=== PATIENT | male | born 1975 | race Caucasian/White ===

== ENCOUNTER 2020-02-01 09:45 | Emergency (ER) | payer BC ==
[2020-02-01] MEDS ORDERED: KETOROLAC 30 MG/ML INJ ONE (10:03)
[2020-02-01] MEDS ORDERED: NA CHLORIDE 0.9% 1,000 ML ONE ×2 (10:03→11:31)
[2020-02-01 10:20] LABS: Absolute Lymphocytes (CBC) 1.3 K/uL (0.7-4.9); Basophils % 0.3 % (0-1.3); Lymphocytes % 16.6 % (15.3-44.8); MPV 9.1 fL (7.6-11.3); RBC Red Blood Cell Count 5.05 M/uL (4.33-5.43)
--- NOTE | 2020-02-01 10:50 | RAD REPORT ---
EXAM DESCRIPTION: US - Abdomen Exam Limited - 02/01/2020 10:16 am CLINICAL HISTORY: ABD PAIN COMPARISON: No comparisons FINDINGS: Gallbladder is only partially filled. Patient was not fasting at the time of the examinati on. No stones or sludge confirmed. Wall thickness is accentuated by the partially contracted state. N o pericholecystic fluid. No common duct stone or biliary tree dilatation identified. Diffuse fatty infiltration of a partially imaged liver. IMPRESSION: No stones or sludge identified in the partially filled gallbladder. No biliary tree dilatation or duct stone seen.
[2020-02-01 10:51] LABS: Albumin 4.1 g/dL (3.4-5.0); Bilirubin Direct 0.1 mg/dL (0-0.2); Bilirubin Total 0.6 mg/dL (0.2-1.0); Magnesium 2.4 mg/dL (1.8-2.4); Protein, Total 8.1 g/dL (6.4-8.2); Uric Acid 5.6 mg/dL (3.5-7.2)
[2020-02-01 10:53] LABS: CKMB Creatine Kinase MB < 1.0 ng/mL (0.3-3.6); Creatine Phosphokinase 106 U/L (39-308); HDL Cholesterol 79 mg/dL (40-60); LDL Cholesterol, Calculated 99 (<130)
--- NOTE | 2020-02-01 10:56 | RAD REPORT ---
EXAM DESCRIPTION: CT - Abdomen W Contrast - 02/01/2020 10:30 am CLINICAL HISTORY: ABD PAIN COMPARISON: No comparisons TECHNIQUE: Biphasic, helical CT imaging of the abdomen was performed following 100 ml non-ionic IV c ontrast. No oral contrast administered. All CT scans are performed using dose optimization technique as appropriate and may include automated exposure control or mA/KV adjustment according to patient size. FINDINGS: No suspicious findings in the lung bases. Mild diffuse fatty infiltration of the liver is present. There is small area of spared parenchyma monet r the gallbladder fossa. No focal liver parenchymal lesions seen. Portal vein is normal. Partially fi lled gallbladder shows no suspicious finding on CT imaging. No biliary tree dilatation. Pancreas and spleen show no suspicious findings. Symmetric renal function is seen with no hydronephrosis or suspicious renal mass. Bilateral small hank al cysts are present. There is a larger benign 2.8 centimeter cyst posterior upper pole left kidney. No perinephric stranding. No adrenal gland abnormality. No gastric dilatation or wall thickening. No small bowel or large bowel dilatation or acute finding. No free air, free fluid or inflammatory stranding. A very small fat only umbilical hernia is present . No ascites or bulky lymphadenopathy. No suspicious bony findings. IMPRESSION: Fatty infiltration of the liver. No other acute or significant finding identifiable.
[2020-02-01] MEDS ORDERED: DIAZEPAM 5 MG TABLET ONE (11:31)
[2020-02-01 11:49] LABS: Urine Blood NEGATIVE (NEG); Urine Glucose NEGATIVE (NEG); Urine Protein NEGATIVE (NEG); Urine pH 5.5 (5.0-7.0)
[2020-02-01] MEDS ORDERED: DICYCLOMINE HCL 10 MG CAP ONE (12:34)
[2020-02-01 12:46] VITALS: TEMP 98.2
[2020-02-01 12:47] VITALS: BP 135/96; O2SAT 100
--- NOTE | 2020-02-01 19:57 | ER ---
Nurse's Notes [facility] Name: Nav Roman Age: 44 yrs Sex: Male : 1975 Arrival Date: 02/01/2020 Time: 09:46 Bed 8 Private MD: Diagnosis: Unspecified abdominal pain;Fatty (change of) liver, not elsewhere classified Presentation: 01/31 09:51 Chief complaint: Patient states: right sided back pain that started yesterday, denies em problems urinating. Coronavirus screen: Proceed with normal triage. Patient denies a cough. Patient denies shortness of breath or difficulty breathing. Patient denies measured and/or subjective temperature greater than 100.4F prior to today's visit. Patient denies travel on a cruise ship or to a country the [facility] currently lists as an affected area. Patient denies contact with known and/or suspected case of COVID-19. Ebola Screen: Patient negative for fever greater than or equal to 101.5 degrees Fahrenheit, and additional compatible Ebola Virus Disease symptoms Patient denies exposure to infectious person. Patient denies travel to an Ebola-affected area in the 21 days before illness onset. No symptoms or risks identified at this time. Initial Sepsis Screen: Does the patient meet any 2 criteria? HR > 90 bpm. No. Patient's initial sepsis screen is negative. Does the patient have a suspected source of infection? No. Patient's initial sepsis screen is negative. Risk Assessment: Do you want to hurt yourself or someone else? Patient reports no desire to harm self or others. Onset of symptoms was January 31, 2020. 09:51 Method Of Arrival: Ambulatory em 09:51 Acuity: ANDERSON 3 em Historical: - Allergies: 09:49 No Known Allergies; snw - Home Meds: 09:54 None [Active]; em - PMHx: 09:54 None; em - PSHx: 09:54 None; em - Immunization history:: Adult Immunizations up to date. - Social history:: Patient uses alcohol, on a daily basis. caffeine, Patient/guardian denies using IV drugs, The patient works around chemicals, Smoking status: Patient denies any tobacco usage or history of. - Family history:: pertinent for heart disease, hypertension, hypercholesterolemia, hyperlipidemia, Father has/had heart disease, sudden at 47. Brother has/had heart disease, [place] at 38yr. - Hospitalizations: : No recent hospitalization is reported. Screenin:53 Abuse screen: Denies threats or abuse. Nutritional screening: No deficits noted. em Tuberculosis screening: No symptoms or risk factors identified. Fall Risk None identified. Assessment: 09:50 General: Appears in no apparent distress. comfortable, Behavior is calm, cooperative, em appropriate for age, Denies fever. Pain: Complains of pain in right lower quadrant and right upper quadrant Pain currently is 5 out of 10 on a pain scale. Neuro: Level of Consciousness is awake, alert, obeys commands, Oriented to person, place, time, situation, Appropriate for age. Cardiovascular: Capillary refill < 3 seconds Patient's skin is warm and dry. Respiratory: Airway is patent Respiratory effort is even, unlabored, Respiratory pattern is regular, symmetrical. GI: Abdomen is flat, Bowel sounds present X 4 quads. Abd is soft X 4 quads Abdomen is tender to palpation in right upper quadrant and right lower quadrant Patient currently denies nausea, vomiting. : Denies burning with urination. Derm: Skin is intact, is healthy with good turgor, Skin is pink, warm \T\ dry. Musculoskeletal: Capillary refill < 3 seconds, Range of motion: intact in all extremities. 10:10 Reassessment: US at bedside. em 10:30 Reassessment: Patient appears in no apparent distress at this time. Patient and/or em family updated on plan of care and expected duration. Pain level reassessed. Patient is alert, oriented x 3, equal unlabored respirations, skin warm/dry/pink. Patient states feeling better. Patient states symptoms have improved. 11:49 Reassessment: Pt will be discharged after fluids are done infusing. [email or web address] Vital Signs: 09:51 BP 131 / 104; Pulse 107; Resp 20; Temp 98.0; Pulse Ox 99% on R/A; Pain 5/10; em 09:55 BP 143 / 100; Pulse 108; Resp 18; Temp 98.2; Pulse Ox 99% ; Weight 108.86 kg; Height 6 snw ft. 1 in. (185.42 cm); 11:44 BP 135 / 96; Pulse 83; Resp 18; Pulse Ox 100% on R/A; Pain 2/10; em 09:55 Body Mass Index 31.66 (108.86 kg, 185.42 cm) sn ED Course: 09:46 Patient arrived in ED. snw 09:48 Hugh De La Paz, RN is Primary Nurse. em 09:51 Arm band placed on. em 09:53 Triage completed. em 09:53 Patient has correct armband on for positive identification. Placed in gown. Bed in low em position. Call light in reach. Side rails up X2. Adult w/ patient. Pulse ox on. NIBP on. 09:55 Sierra Roman FNP-C is PHCP. snw 09:55 Rogelio Suárez MD is Attending Physician. snw 10:16 Abdomen Limited US In Process Unspecified. EDMS 10:25 Ultrasound completed. Patient tolerated well. hr 10:30 CT Abdomen - IV Contrast Only In Process Unspecified. EDMS 10:30 Initial lab(s) drawn, by me, sent to lab. Inserted saline lock: 20 gauge in right em antecubital area, using aseptic technique. Blood collected. 11:25 Urine collected: clean catch specimen, clear. em 12:23 No provider procedures requiring assistance completed. IV discontinued, intact, em bleeding controlled, No redness/swelling at site. Pressure dressing applied. Administered Medications: 10:05 Drug: NS 0.9% 1000 ml Route: IV; Rate: 1 bolus; Site: right antecubital; em 12:35 Follow up: IV Status: Completed infusion; IV Intake: 1000ml em 10:05 Drug: TORadol - Ketorolac 15 mg Route: IVP; Site: right antecubital; em 11:20 Follow up: Response: No adverse reaction; Marked relief of symptoms; Pain is decreased em 11:30 Drug: NS 0.9% 1000 ml Route: IV; Rate: 1 bolus; Site: right antecubital; em 12:38 Follow up: IV Status: Completed infusion; IV Intake: 1235ml em 11:30 Drug: Valium 5 mg Route: PO; em 11:43 Follow up: Response: No adverse reaction em 12:30 Drug: Bentyl 20 mg Route: PO; ss 12:35 Follow up: Response: Medication administered at discharge. em Intake: 12:35 IV: 1000ml; Total: 1000ml. em 12:38 IV: 1235ml; Total: 2235ml. em Outcome: 11:42 Discharge ordered by MD. meza 12:23 Discharged to home ambulatory. em 12:23 Condition: good 12:23 Discharge instructions given to patient, Instructed on discharge instructions, follow up and referral plans. medication usage, Demonstrated understanding of instructions, follow-up care, medications, Prescriptions given X 1. 12:37 Patient left the ED. em Signatures: Dispatcher [employer] EDMS Sierra Roman, TRAFFIC ENGINEER-C TRAFFIC ENGINEER-Csnw Sadie Feng Edgar, RN RN Sangeeta Matamoros RN RN Mimi Heath RN RN [email or web address] Corrections: (The following items were deleted from the chart) 10:10 09:51 Initial Sepsis Screen: Does the patient meet any 2 criteria? HR > 90 bpm. No. em Patient's initial sepsis screen is negative. Does the patient have a suspected source of infection? No. Patient's initial sepsis screen is negative. em
--- NOTE | 2020-02-01 19:57 | EDPHYS ---
Physician Documentation [facility] Name: Nav Roman Age: 44 yrs Sex: Male : 1975 Arrival Date: 02/01/2020 Time: 09:46 Bed 8 Private MD: ED Physician Rogelio Suárez HPI: 01/31 09:51 This 44 yrs old Male presents to ER via Unassigned with complaints of snw Abdominal Pain. 09:52 The patient presents with abdominal pain in the right upper quadrant, right lower snw quadrant. Onset: The symptoms/episode began/occurred gradually, yesterday, and became worse. The symptoms radiate to the right flank, right upper quadrant and right lower quadrant. Associated signs and symptoms: none. The symptoms are described as crampy, steady, vague. Severity of pain: At its worst the pain was moderate. The patient has not experienced similar symptoms in the past. The patient has not recently seen a physician, and does not have an established primary care provider. Historical: - Allergies: 09:49 No Known Allergies; snw - Home Meds: 09:54 None [Active]; em - PMHx: 09:54 None; em - PSHx: 09:54 None; em - Immunization history:: Adult Immunizations up to date. - Social history:: Patient uses alcohol, on a daily basis. caffeine, Patient/guardian denies using IV drugs, The patient works around [employer], Smoking status: Patient denies any tobacco usage or history of. - Family history:: pertinent for heart disease, hypertension, hypercholesterolemia, hyperlipidemia, Father has/had heart disease, sudden at 47. Brother has/had heart disease, [place] at 38yr. - Hospitalizations: : No recent hospitalization is reported. ROS: 09:52 Constitutional: Negative for fever, chills, and weight loss, Eyes: Negative for injury, snw pain, redness, and discharge, ENT: Negative for injury, pain, and discharge, Neck: Negative for injury, pain, and swelling, Cardiovascular: Negative for chest pain, palpitations, and edema, Respiratory: Negative for shortness of breath, cough, wheezing, and pleuritic chest pain, Back: Negative for injury and pain, : Negative for injury, bleeding, discharge, and swelling, MS/Extremity: Negative for injury and deformity, Skin: Negative for injury, rash, and discoloration, Neuro: Negative for headache, weakness, numbness, tingling, and seizure. 09:52 Abdomen/GI: Positive for abdominal pain, Negative for nausea, vomiting, and diarrhea, black/tarry stool, rectal pain, bowel incontinence. Exam: 09:52 Constitutional: This is a well developed, well nourished patient who is awake, alert, snw and in no acute distress. Head/Face: Normocephalic, atraumatic. Eyes: Pupils equal round and reactive to light, extra-ocular motions intact. Lids and lashes normal. Conjunctiva and sclera are non-icteric and not injected. Cornea within normal limits. Periorbital areas with no swelling, redness, or edema. ENT: Nares patent. No nasal discharge, no septal abnormalities noted. Tympanic membranes are normal and external auditory canals are clear. Oropharynx with no redness, swelling, or masses, exudates, or evidence of obstruction, uvula midline. Mucous membranes moist. Neck: Trachea midline, no thyromegaly or masses palpated, and no cervical lymphadenopathy. Supple, full range of motion without nuchal rigidity, or vertebral point tenderness. No Meningismus. Chest/axilla: Normal chest wall appearance and motion. Nontender with no deformity. No lesions are appreciated. Cardiovascular: Regular rate and rhythm with a normal S1 and S2. No gallops, murmurs, or rubs. Normal PMI, no JVD. No pulse deficits. Respiratory: Lungs have equal breath sounds bilaterally, clear to auscultation and percussion. No rales, rhonchi or wheezes noted. No increased work of breathing, no retractions or nasal flaring. Skin: Warm, dry with normal turgor. Normal color with no rashes, no lesions, and no evidence of cellulitis. MS/ Extremity: Pulses equal, no cyanosis. Neurovascular intact. Full, normal range of motion. Neuro: Awake and alert, GCS 15, oriented to person, place, time, and situation. Cranial nerves II-XII grossly intact. Motor strength 5/5 in all extremities. Sensory grossly intact. Cerebellar exam normal. Normal gait. Psych: Awake, alert, with orientation to person, place and time. Behavior, mood, and affect are within normal limits. 09:52 Abdomen/GI: Inspection: abdomen appears normal, Bowel sounds: hyperactive, in the right upper quadrant, Palpation: mild abdominal tenderness, in the right upper quadrant and right lower quadrant. 09:52 Back: pain, that is moderate, CVA tenderness, that is mild, is noted on the right, vertebral tenderness, is not appreciated, muscle spasm, is not present. Vital Signs: 09:51 BP 131 / 104; Pulse 107; Resp 20; Temp 98.0; Pulse Ox 99% on R/A; Pain 5/10; em 09:55 BP 143 / 100; Pulse 108; Resp 18; Temp 98.2; Pulse Ox 99% ; Weight 108.86 kg; Height 6 snw ft. 1 in. (185.42 cm); 11:44 BP 135 / 96; Pulse 83; Resp 18; Pulse Ox 100% on R/A; Pain 2/10; em 09:55 Body Mass Index 31.66 (108.86 kg, 185.42 cm) snw MDM: 09:46 Patient medically screened. snw 11:06 Data reviewed: vital signs, nurses notes, lab test result(s), EKG, radiologic studies, snw CT scan, ultrasound. Data interpreted: Pulse oximetry: on room air is 99 %. Interpretation: normal. Counseling: I had a detailed discussion with the patient and/or guardian regarding: the historical points, exam findings, and any diagnostic results supporting the discharge/admit diagnosis, the presence of at least one elevated blood pressure reading (>120/80) during this emergency department visit, lab results, radiology results, the need for outpatient follow up, for definitive care, to return to the emergency department if symptoms worsen or persist or if there are any questions or concerns that arise at home. Response to treatment: the patient's symptoms have mildly improved after treatment. 01/31 09:49 Order name: Basic Metabolic Panel; Complete Time: 10:58 snw 01/31 09:49 Order name: CBC with Diff; Complete Time: 10:25 snw 01/31 09:49 Order name: Hepatic Function; Complete Time: 10:58 snw 01/31 09:49 Order name: Lipase; Complete Time: 10:58 snw 01/31 09:49 Order name: Magnesium; Complete Time: 10:58 snw 01/31 09:49 Order name: Abdomen Limited US; Complete Time: 10:58 snw 01/31 09:49 Order name: Phosphorus; Complete Time: 10:58 snw 01/31 09:49 Order name: Uric Acid; Complete Time: 10:58 snw 01/31 09:51 Order name: Ckmb; Complete Time: 10:58 snw 01/31 09:51 Order name: CPK; Complete Time: 10:58 snw 01/31 09:52 Order name: Lipid Profile; Complete Time: 10:58 snw 01/31 11:44 Order name: Urine Dipstick--Ancillary (enter results); Complete Time: 11:49 bd 01/31 11:59 Order name: CREATININE WHOLE BLOOD; Complete Time: 12:00 EDMS 01/31 09:49 Order name: IV Saline Lock; Complete Time: 11:43 snw 01/31 09:49 Order name: Labs collected and sent; Complete Time: 09:54 snw 01/31 09:49 Order name: CT Abdomen - IV Contrast Only; Complete Time: 10:58 snw 01/31 09:49 Order name: Urine Dipstick-Ancillary (obtain specimen); Complete Time: 11:43 snw Administered Medications: 10:05 Drug: NS 0.9% 1000 ml Route: IV; Rate: 1 bolus; Site: right antecubital; em 12:35 Follow up: IV Status: Completed infusion; IV Intake: 1000ml em 10:05 Drug: TORadol - Ketorolac 15 mg Route: IVP; Site: right antecubital; em 11:20 Follow up: Response: No adverse reaction; Marked relief of symptoms; Pain is decreased em 11:30 Drug: NS 0.9% 1000 ml Route: IV; Rate: 1 bolus; Site: right antecubital; em 12:38 Follow up: IV Status: Completed infusion; IV Intake: 1235ml em 11:30 Drug: Valium 5 mg Route: PO; em 11:43 Follow up: Response: No adverse reaction em 12:30 Drug: Bentyl 20 mg Route: PO; ss 12:35 Follow up: Response: Medication administered at discharge. em Disposition: 15:24 Co-signature as Attending Physician, Rogelio LARSEN I agree with the assessment and kang plan of care. Disposition: 02/01/20 11:42 Discharged to Home. Impression: Unspecified abdominal pain, Fatty (change of) liver, not elsewhere classified. - Condition is Stable. - Discharge Instructions: Abdominal Pain, Adult, Hypertension, Rehydration, Adult, Form - Blood Pressure Record Sheet, Essential Tremor, Nonalcoholic Fatty Liver Disease Diet. - Prescriptions for Bentyl 20 mg Oral Tablet - take 2 tablet by ORAL route every 6 hours As needed; 40 tablet. - Work release form, Medication Reconciliation Form, Thank You Letter, Antibiotic Education, Prescription Opioid Use form. - Follow up: Emergency Department; When: As needed; Reason: Worsening of condition. Follow up: Private Physician; When: 2 - 3 days; Reason: Recheck today's complaints, Continuance of care, Re-evaluation by your physician. Signatures: Dispatcher [employer] EDMS Rogelio Suárez MD MD cha Therrien, Shelly, FASTENER SEWING MACHINE OPERATOR-C FASTENER SEWING MACHINE OPERATOR-Milesw Hugh De La Paz, RN RN Sangeeta Mejía RN RN ss Corrections: (The following items were deleted from the chart) 12:37 11:42 02/01/2020 11:42 Discharged to Home. Impression: Unspecified abdominal pain; em Fatty (change of) liver, not elsewhere classified. Condition is Stable. Discharge Instructions: Abdominal Pain, Adult, Hypertension, Rehydration, Adult, Form - Blood Pressure Record Sheet, Essential Tremor, Nonalcoholic Fatty Liver Disease Diet. Prescriptions for Bentyl 20 mg Oral Tablet - take 2 tablet by ORAL route every 6 hours As needed; 40 tablet. and Forms are Work release form, Medication Reconciliation Form, Thank You Letter, Antibiotic Education, Prescription Opioid Use. Follow up: Emergency Department; When: As needed; Reason: Worsening of condition. Follow up: Private Physician; When: 2 - 3 days; Reason: Recheck today's complaints, Continuance of care, Re-evaluation by your physician. snw
== END 2020-02-01 12:37 | disposition home or self-care (01) ==
LOC: ER 09:45
DX: K76.0 Fatty (change of) liver, not elsewhere classified (principal)
CPT/HCPCS: 96361; 85025; 80048; 36415; 83735; 82550; 84100; 80061; 82565; 80076; 84550; 81003; 82553; 83690; 74160; 76705; 96374; 99284; Q9967; J7030 ×2

== ENCOUNTER 2020-02-01 20:34 | Emergency (ER) | payer SELFPAY ==
--- NOTE | 2020-02-01 21:32 | ER ---
Nurse's Notes [facility] Name: Nav Roman Age: 44 yrs Sex: Male : 1975 Arrival Date: 02/01/2020 Time: 20:36 Bed Waiting Private MD: Diagnosis: Presentation: 01/31 20:44 Chief complaint: Patient states: Mid back pain has gotten worse since he left here ll1 early this morning. CT showed fatty liver. No N/V. No fever. Coronavirus screen: Proceed with normal triage. Patient denies a cough. Patient denies shortness of breath or difficulty breathing. Patient denies measured and/or subjective temperature greater than 100.4F prior to today's visit. Patient denies travel on a cruise ship or to a country the [facility] currently lists as an affected area. Patient denies contact with known and/or suspected case of COVID-19. Ebola Screen: Patient denies travel to an Ebola-affected area in the 21 days before illness onset. Initial Sepsis Screen: Does the patient meet any 2 criteria? No. Patient's initial sepsis screen is negative. Does the patient have a suspected source of infection? Yes: Acute abdominal pain. Risk Assessment: Do you want to hurt yourself or someone else? Patient reports no desire to harm self or others. Onset of symptoms was January 31, 2020. 20:44 Method Of Arrival: Ambulatory ll1 20:44 Acuity: ANDERSON 3 ll1 Historical: - Allergies: 20:46 No Known Allergies; ll1 - PSHx: 20:46 None; ll1 - Immunization history:: Adult Immunizations up to date. - Social history:: Patient uses alcohol, 12/day. Patient/guardian denies using street drugs, tobacco products. Vital Signs: 20:44 BP 155 / 97; Pulse 88; Resp 18; Temp 99.8; Pulse Ox 99% ; Pain 10/10; ll1 ED Course: 20:36 Patient arrived in ED. cl3 20:46 Triage completed. ll1 20:47 Arm band placed on Patient notified of wait time. ll1 Administered Medications: No medications were administered Outcome: 21:31 Patient left the ED. 1 Signatures: Lakshmi Reed cl3 Saud Reed RN RN 1
[2020-02-01 21:39] VITALS: BP 155/97; TEMP 99.8; O2SAT 99
== END 2020-02-01 21:31 | disposition left against medical advice (07) ==
LOC: ER 20:34
DX: Z53.21 Procedure and treatment not carried out due to patient leaving prior to being seen by health care provider (principal)
CPT/HCPCS: 99281

== ENCOUNTER 2021-02-12 07:21 | Emergency (ER) | payer BC, SELFPAY ==
[2021-02-12 07:47] LABS: Absolute Lymphocytes (CBC) 2.4 K/uL (0.7-4.9); Basophils % 0.3 % (0-1.3); Hematocrit 42.6 % (39.6-49.0); Lymphocytes % 40.7 % (15.3-44.8); MPV 8.5 fL (7.6-11.3); RBC Red Blood Cell Count 4.62 M/uL (4.33-5.43)
[2021-02-12] MEDS ORDERED: ONDANSETRON 4 MG/2 ML VIAL ONE (07:50)
[2021-02-12] MEDS ORDERED: MORPHINE 4 MG/ML SYR ONE (07:50)
[2021-02-12 07:57] LABS: Potassium 3.9 mmol/L (3.5-5.1)
[2021-02-12] MEDS ORDERED: TAMSULOSIN 0.4 MG SR CAP ONE (08:00)
[2021-02-12] MEDS ORDERED: MAGNESIUM SULFATE 1 gm IVPB 1 GM/100 ML BAG IV ONE (08:00)
[2021-02-12] MEDS ORDERED: HYDROMORPHONE HCL 1 MG/ML INJ ONE (08:08)
[2021-02-12] MEDS ORDERED: PROMETHAZINE INJ 25 MG/ML AMP ONE (08:08)
--- NOTE | 2021-02-12 08:49 | RAD REPORT ---
EXAM DESCRIPTION: CT - Stone Protocol - 02/12/2021 8:29 am CLINICAL HISTORY: Flank pain. right lower abd pain COMPARISON: No comparisonsAbdomen W Contrast dated 02/01/2020 TECHNIQUE: Axial images were obtained without oral or IV contrast. Lack of contrast limits solid org an and vascular assessment. The [id number] spans the entirety of the system partially obscuring uppermost abdomen and lung bases. Coronal reformatted images were obtained and reviewed. All CT scans are performed using dose optimization technique as appropriate and may include automated exposure control or mA/KV adjustment according to patient size. FINDINGS: The lower lung pereira are clear. Small hiatal hernia. Imaged portions of the liver and spleen show no suspicious findings on non-contrast imaging. The panc reas and adrenal glands are normal. No pathologic lymphadenopathy in the abdomen or pelvis. 3 mm stone is present at the right UVJ resulting in mild right hydronephrosis. No left-sided stone hy dronephrosis. 24 mm left renal cyst noted, likely benign. No bowel obstruction, free air, free fluid or abscess. Normal appendix noted. No significant bony abnormality. IMPRESSION: 3 mm stone right UVJ resulting mild right hydronephrosis.
[2021-02-12] MEDS ORDERED: KETOROLAC 30 MG/ML INJ ONE (09:25)
--- NOTE | 2021-02-12 10:08 | ER ---
Nurse's Notes [facility] Name: Nav Roman Age: 45 yrs Sex: Male : 1975 Arrival Date: 02/12/2021 Time: 07:22 Bed 18 Private MD: Diagnosis: Ureterolithiasis, no hydronephrosis Presentation: 02/12 07:26 Coronavirus screen: Client denies travel out of the [place] in the last 14 days. At this ll1 time, the client does not indicate any symptoms associated with coronavirus-19. Ebola Screen: Patient denies travel to an Ebola-affected area in the 21 days before illness onset. Initial Sepsis Screen:. Risk Assessment: Do you want to hurt yourself or someone else? Patient reports no desire to harm self or others. Onset of symptoms was February 12, 2021. 07:26 Method Of Arrival: Ambulatory 1 07:26 Acuity: ANDERSON 3 ll1 07:27 Chief complaint: Patient states: R flank/abd pain for 1.5 hours OBSTETRICS GYN. No fever or ll1 dysuria. Denies N/V/D. 08:08 Initial Sepsis Screen: Does the patient meet any 2 criteria? No. Patient's initial ph sepsis screen is negative. Does the patient have a suspected source of infection? No. Patient's initial sepsis screen is negative. Historical: - Allergies: 07:26 No Known Allergies; ll1 - PMHx: 07:26 None; ll1 - PSHx: 07:26 None; ll1 - Immunization history:: Flu vaccine is not up to date. - Social history:: Smoking status: Patient denies any tobacco usage or history of. - Family history:: not pertinent. - Hospitalizations: : No recent hospitalization is reported. Screenin:27 Abuse screen: Denies threats or abuse. Nutritional screening: No deficits noted. ll1 Tuberculosis screening: No symptoms or risk factors identified. 09:14 Fall Risk None identified. ph Assessment: 07:30 General: Appears in no apparent distress. uncomfortable, well groomed, Behavior is ph cooperative, restless. Pain: Complains of pain in right lower quadrant Pain began suddenly, Noted to be grimacing, guarding, pacing Also complains of nausea, diaphoresis. Neuro: Level of Consciousness is awake, alert, obeys commands, Oriented to person, place, time, situation. Cardiovascular: Capillary refill < 3 seconds in bilateral fingers. Respiratory: Airway is patent Respiratory effort is even, unlabored. GI: Abdomen is non-distended, Abd is soft and non tender X 4 quads. Reports lower abdominal pain, nausea. : Reports pain in right lower quadrant(s) Denies burning with urination, inability to void. Derm: Skin is intact, is healthy with good turgor, Skin is pink, warm \T\ dry. 07:55 Reassessment: Patient appears in no apparent distress at this time. Patient and/or ph family updated on plan of care and expected duration. Pain level reassessed. Pt reports that pain has not improved after IV morphine, also noted to be actively vomiting. ERP notified and verbal order received for additional pain and nausea medication, see MAR. 09:13 Reassessment: Patient appears in no apparent distress at this time. Patient and/or ph family updated on plan of care and expected duration. Pain level reassessed. Patient is alert, oriented x 3, equal unlabored respirations, skin warm/dry/pink. 10:24 Reassessment: Patient appears in no apparent distress at this time. Patient and/or ph family updated on plan of care and expected duration. Pain level reassessed. Patient is alert, oriented x 3, equal unlabored respirations, skin warm/dry/pink. Pt d/c home w/ SO. Vital Signs: 07:26 Weight 99.79 kg; Height 6 ft. 0 in. (182.88 cm); Pain 10/10; ll1 07:31 BP 119 / 94; Pulse 54; Resp 18; Pulse Ox 98% on R/A; ph 07:33 Temp 97.6; ph 08:03 BP 150 / 90; Pulse 64; Resp 14; Pulse Ox 94% on R/A; ph 09:13 BP 134 / 79; Pulse 63; Resp 16; Pulse Ox 98% on R/A; ph 10:24 BP 138 / 78; Pulse 64; Resp 18; Temp 97.5; Pulse Ox 99% on R/A; ph 07:26 Body Mass Index 29.84 (99.79 kg, 182.88 cm) ll1 ED Course: 07:22 Patient arrived in ED. am2 07:23 Flores, Sabrina, RN is Primary Nurse. ph 07:24 Darren Benz MD is Attending Physician. rn 07:26 Arm band placed on Patient placed in an exam room, on a stretcher. ll1 07:27 Triage completed. ll1 07:28 Patient has correct armband on for positive identification. Bed in low position. Call ll1 light in reach. Side rails up X 1. Pulse ox on. NIBP on. 07:33 Initial lab(s) drawn, by me, sent to lab. Inserted saline lock: 20 gauge in right dh3 forearm, using aseptic technique. 08:29 CT Stone Protocol In Process Unspecified. EDMS 09:14 No provider procedures requiring assistance completed. ph 10:25 IV discontinued, intact, bleeding controlled, No redness/swelling at site. Pressure ph dressing applied. Administered Medications: 07:35 Drug: morphine 4 mg Route: IVP; Site: right forearm; ph 07:45 Follow up: Response: No adverse reaction; Pain is unchanged, physician notified ph 07:35 Drug: Zofran (Ondansetron) 4 mg Route: IVP; Site: right forearm; ph 07:45 Follow up: Response: No adverse reaction; Nausea unchanged ph 07:35 Drug: Magnesium Sulfate 1 grams Route: IVPB; Infused Over: 1 hrs; Site: right forearm; ph 08:35 Follow up: Response: No adverse reaction; IV Status: Completed infusion ph 07:35 Drug: Flomax (tamsulosin) 0.4 mg Route: PO; ph 09:54 Follow up: Response: No adverse reaction ph 07:58 Drug: Phenergan (promethazine) 12.5 mg Route: IVP; Site: right forearm; ph 09:55 Follow up: Response: No adverse reaction; Nausea is decreased ph 08:00 Drug: Dilaudid (HYDROmorphone) 1 mg Route: IVP; Site: right forearm; ph 08:30 Follow up: Response: No adverse reaction; Pain is decreased; RASS: Drowsy (-1) ph 09:13 Not Given (Other Intervention Used): Demerol (meperidine) 50 mg IVP once; RASS on ph ADMIN: Combtv4, Very Agttd3, Agttd2, Rstlss1, AlertClm0, Drwsy-1, Lt Sdtn-2, Mod Sdtn-3, Dp Sdtn-4, UnArsble-5 09:13 Drug: TORadol (ketorolac) 30 mg Route: IVP; Site: right forearm; ph 09:55 Follow up: Response: No adverse reaction ph Outcome: 10:07 Discharge ordered by . rn 10:25 Discharged to home ambulatory, with significant other. ph 10:25 Condition: good 10:25 Discharge instructions given to patient, significant other, Instructed on discharge instructions, follow up and referral plans. medication usage, Demonstrated understanding of instructions, follow-up care, medications, Prescriptions given X 2. 10:26 Patient left the ED. ph Signatures: Dispatcher [employer] EDMS Darren Benz MD MD rn Hall, Patricia, RN RN ph Moreno, Amanda am2 Herrera, Deanna [facility] Saud Reed RN RN ll1
--- NOTE | 2021-02-12 10:08 | EDPHYS ---
Physician Documentation [facility] Name: Nav Roman Age: 45 yrs Sex: Male : 1975 Arrival Date: 02/12/2021 Time: 07:22 Bed 18 Private MD: ED Physician Darren Benz HPI: 02/12 07:30 This 45 yrs old Male presents to ER via Ambulatory with complaints of rn Abdominal Pain. 07:30 The patient presents with abdominal pain right lower quadrant. Onset: The rn symptoms/episode began/occurred 1 hour(s) ago. The symptoms do not radiate. Associated signs and symptoms: Pertinent positives: nausea, Pertinent negatives: dysuria, fever, hematuria. The symptoms are described as sharp. Modifying factors: The symptoms are alleviated by nothing, the symptoms are aggravated by nothing. Severity of pain: At its worst the pain was moderate in the emergency department the pain is unchanged. The patient has not experienced similar symptoms in the past. The patient has not recently seen a physician. Sudden onset RLQ abd pain, no hx of kidney stones, no fever, no trauma. . Historical: - Allergies: 07:26 No Known Allergies; ll1 - PMHx: 07:26 None; ll1 - PSHx: 07:26 None; ll1 - Immunization history:: Flu vaccine is not up to date. - Social history:: Smoking status: Patient denies any tobacco usage or history of. - Family history:: not pertinent. - Hospitalizations: : No recent hospitalization is reported. ROS: 07:30 Constitutional: Negative for fever, chills, and weight loss, Eyes: Negative for injury, rn pain, redness, and discharge, Neck: Negative for injury, pain, and swelling, Cardiovascular: Negative for chest pain, palpitations, and edema, Respiratory: Negative for shortness of breath, cough, wheezing, and pleuritic chest pain, Abdomen/GI: + RLQ abd pain and nausea Back: Negative for injury and pain, : Negative for injury, bleeding, discharge, and swelling, MS/Extremity: Negative for injury and deformity, Skin: Negative for injury, rash, and discoloration, Neuro: Negative for headache, weakness, numbness, tingling, and seizure. Exam: 07:30 Constitutional: This is a well developed, well nourished patient who is awake, alert, rn diaphoretic, pacing Head/Face: Normocephalic, atraumatic. Eyes: Periorbital areas with no swelling, redness, or edema. Cardiovascular: Regular rhythm. No pulse deficits. Respiratory: No increased work of breathing, no retractions or nasal flaring. Abdomen/GI: soft, non-tender Skin: Warm, dry MS/ Extremity: Pulses equal, no cyanosis. Neuro: Awake and alert, GCS 15 Vital Signs: 07:26 Weight 99.79 kg; Height 6 ft. 0 in. (182.88 cm); Pain 10/10; ll1 07:31 BP 119 / 94; Pulse 54; Resp 18; Pulse Ox 98% on R/A; ph 07:33 Temp 97.6; ph 08:03 BP 150 / 90; Pulse 64; Resp 14; Pulse Ox 94% on R/A; ph 09:13 BP 134 / 79; Pulse 63; Resp 16; Pulse Ox 98% on R/A; ph 10:24 BP 138 / 78; Pulse 64; Resp 18; Temp 97.5; Pulse Ox 99% on R/A; ph 07:26 Body Mass Index 29.84 (99.79 kg, 182.88 cm) ll1 MDM: 07:24 Patient medically screened. rn 10:06 Differential diagnosis: Ureterolithiasis. Data reviewed: vital signs, nurses notes, candlemaking laborer test result(s), radiologic studies, CT scan, and as a result, I will discharge patient. Counseling: I had a detailed discussion with the patient and/or guardian regarding: the historical points, exam findings, and any diagnostic results supporting the discharge/admit diagnosis, lab results, radiology results, the need for outpatient follow up, to return to the emergency department if symptoms worsen or persist or if there are any questions or concerns that arise at home. Response to treatment: the patient's symptoms have markedly improved after treatment, sleeping comfortably, snoring, and as a result, I will discharge patient. Special discussion: I discussed with the patient/guardian in detail that at this point there is no indication for admission to the hospital. It is understood, however, that if the symptoms persist or worsen the patient needs to return immediately for re-evaluation. 02/12 07:30 Order name: Basic Metabolic Panel; Complete Time: 08:57 rn 06/13 07:30 Order name: CBC with Diff; Complete Time: 08:57 rn 02/12 07:30 Order name: CT Stone Protocol; Complete Time: 08:57 rn 02/12 07:30 Order name: IV Saline Lock; Complete Time: 07:30 rn 02/12 07:30 Order name: Labs collected and sent; Complete Time: 07:30 rn Administered Medications: 07:35 Drug: morphine 4 mg Route: IVP; Site: right forearm; ph 07:45 Follow up: Response: No adverse reaction; Pain is unchanged, physician notified ph 07:35 Drug: Zofran (Ondansetron) 4 mg Route: IVP; Site: right forearm; ph 07:45 Follow up: Response: No adverse reaction; Nausea unchanged ph 07:35 Drug: Magnesium Sulfate 1 grams Route: IVPB; Infused Over: 1 hrs; Site: right forearm; ph 08:35 Follow up: Response: No adverse reaction; IV Status: Completed infusion ph 07:35 Drug: Flomax (tamsulosin) 0.4 mg Route: PO; ph 09:54 Follow up: Response: No adverse reaction ph 07:58 Drug: Phenergan (promethazine) 12.5 mg Route: IVP; Site: right forearm; ph 09:55 Follow up: Response: No adverse reaction; Nausea is decreased ph 08:00 Drug: Dilaudid (HYDROmorphone) 1 mg Route: IVP; Site: right forearm; ph 08:30 Follow up: Response: No adverse reaction; Pain is decreased; RASS: Drowsy (-1) ph 09:13 Not Given (Other Intervention Used): Demerol (meperidine) 50 mg IVP once; RASS on ph ADMIN: Combtv4, Very Agttd3, Agttd2, Rstlss1, AlertClm0, Drwsy-1, Lt Sdtn-2, Mod Sdtn-3, Dp Sdtn-4, UnArsble-5 09:13 Drug: TORadol (ketorolac) 30 mg Route: IVP; Site: right forearm; ph 09:55 Follow up: Response: No adverse reaction ph Disposition: 02/12/21 10:07 Discharged to Home. Impression: Ureterolithiasis, no hydronephrosis. - Condition is Stable. - Discharge Instructions: Kidney Stones, Dietary Guidelines to Help Prevent Kidney Stones. - Prescriptions for Zofran ODT 4 mg Oral tablet,disintegrating - place 1 tablet by TRANSLINGUAL route every 8 hours As needed; 20 tablet. Tramadol 50 mg Oral Tablet - take 1 tablet by ORAL route every 8 hours as needed; 20 tablet. - Medication Reconciliation Form, Thank You Letter, Antibiotic Education, Prescription Opioid Use form. - Follow up: Private Physician; When: As needed; Reason: Recheck today's complaints, Re-evaluation by your physician. - Problem is new. - Symptoms have improved. Signatures: Dispatcher [employer] EDMS Darren Benz MD MD rn Hall, Patricia, RN RN Saud Reed RN RN ll1 Corrections: (The following items were deleted from the chart) 10:26 10:07 02/12/2021 10:07 Discharged to Home. Impression: Ureterolithiasis, no ph hydronephrosis. Condition is Stable. Forms are Medication Reconciliation Form, Thank You Letter, Antibiotic Education, Prescription Opioid Use. Follow up: Private Physician; When: As needed; Reason: Recheck today's complaints, Re-evaluation by your physician. Problem is new. Symptoms have improved. rn
[2021-02-12 10:39] VITALS: BP 138/78; TEMP 97.5; O2SAT 99
== END 2021-02-12 10:26 | disposition home or self-care (01) ==
LOC: ER 07:21
DX: N20.1 Calculus of ureter (principal)
CPT/HCPCS: 36415; 74176; 76377; 80048; 85025; 96365; 96375; 99284; J1170; J2405; J2550; J3475